=== PATIENT | female | born 1975 | race Hispanic/Latino ===

== ENCOUNTER 2016-09-18 09:23 | Emergency (ER) | payer MEDICARE ==
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
[2016-09-18 10:52] LABS: Bacteria,Urine 1+ /HPF (Negative); Bilirubin,Urine NEG (Negative); Blood,Urine NEG (Negative); Ketones,Urine TR mg/dL (Negative); Leukocyte Esterase,Urine LG (Negative); Mucus,Urine 3+ /HPF; Nitrite,Urine NEG (Negative); Urobilinogen,Urine < 2.0 mg/dL (<2.0)
[2016-09-18] MEDS ORDERED: NORCO 5/325 PO ONE (11:49)
[2016-09-18] MEDS ORDERED: TORADOL IM ONE (12:14)
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
[2016-09-18 15:14] VITALS: BP 149/86
== END 2016-09-18 14:20 | disposition home or self-care (01) ==
LOC: ED 09:23
DX: S06.0X0A Concussion without loss of consciousness, initial encounter (principal); Y08.89XA Assault by other specified means, initial encounter; Y93.9 Activity, unspecified; Y92.9 Unspecified place or not applicable; Y99.9 Unspecified external cause status
CPT/HCPCS: 70450; 70486; 81001; 96372; 99284; J1885